=== PATIENT | female | born 1955 | race Caucasian/White ===

== ENCOUNTER 2018-03-13 11:04 | Outpatient (CLI) | payer OTHER ==
[2018-03-13 11:22] LABS: BASOPHILS # (AUTO) 0.1 10^3/uL (0.0-0.1); BASOPHILS % (AUTO) 0.8 %; EOSINOPHILS # (AUTO) 0.3 10^3/uL (0.0-0.7); HGB - HEMOGLOBIN 13.1 g/dL (12.0-16.0); LYMPHOCYTES # (AUTO) 1.7 10^3/uL (1.5-3.5); LYMPHOCYTES % (AUTO) 20.1 %; MEAN CORPUSCULAR HEMOGLOBIN 29.1 pg (27.0-31.0); MEAN CORPUSCULAR HGB CONC 34.4 g/dL (32.0-36.0); MEAN CORPUSCULAR VOLUME 84.7 fL (81.0-99.0); MEAN PLATELET VOLUME 7.5 fL (7.9-10.8); MONOCYTES # (AUTO) 0.6 10^3/uL (0.0-1.0); MONOCYTES % (AUTO) 7.5 %; NEUTROPHILS # (AUTO) 5.8 10^3/uL (1.5-6.6); NEUTROPHILS % (AUTO) 68.6 %; PLT - PLATELET COUNT 302 10^3/uL (130-450); RED BLOOD COUNT 4.49 10^6/uL (4.20-5.40); RED CELL DISTRIBUTION WIDTH 12.3 % (12.0-15.0); WHITE BLOOD COUNT 8.4 x10^3/uL (4.8-10.8)
[2018-03-13 11:37] LABS: HB2 TOTAL 14.1 g/dL; HEMOGLOBIN A1C 0.91 g/dL; HEMOGLOBIN A1C % 8.1 % (4.6-6.2)
[2018-03-13 11:45] LABS: ALBUMIN 3.9 g/dL (3.2-5.5); ALBUMIN/GLOBULIN RATIO 1.4 (1.0-2.2); ALKALINE PHOSPHATASE 77 IU/L (42-121); ALT ALANINE AMINOTRANSFERASE 20 IU/L (10-60); AST ASPARTATE AMINOTRANSFERASE 21 IU/L (10-42); BILIRUBIN,TOTAL 0.9 mg/dL (0.2-1.0); BUN - BLOOD UREA NITROGEN 11 mg/dL (6-20); CARBON DIOXIDE - CO2 29 mmol/L (21-32); CHLORIDE 102 mmol/L (101-111); CHOL/HDL RATIO 3.4 (<4.4); CHOLESTEROL 163 mg/dL; CREATININE 0.7 mg/dL (0.4-1.0); GFR - MDRD 84 (>89); GLUCOSE 193 mg/dL (70-100); HDL CHOLESTEROL 48 mg/dL; LDL CHOLESTEROL,CALCULATED 82 mg/dL; LDL/HDL RATIO 1.7 (<4.4); SODIUM 139 mmol/L (135-145); TOTAL PROTEIN 6.6 g/dL (6.7-8.2); VLDL CHOLESTEROL 33 mg/dL
[2018-03-13 12:25] LABS: THYROID STIMULATING HORMONE 2.71 uIU/mL (0.34-5.60)
[2018-03-13 12:27] LABS: FREE T4 (FREE THYROXINE) 0.73 ng/dL (0.58-1.64)
[2018-03-13 12:56] LABS: MICROALBUM/CREATININE RATIO,UR 4.5 ug/mg (<30.0); MICROALBUMIN,URINE 0.6 mg/dL (0-300.0)
== END 2018-03-13 11:05 | disposition home or self-care (01) ==
LOC: LAB 11:04
PROVIDERS: ATTEND Nurse Practitioner
DX: I10 Essential (primary) hypertension (principal); E11.9 Type 2 diabetes mellitus without complications; F90.9 Attention-deficit hyperactivity disorder, unspecified type
CPT/HCPCS: 36415; 80053; 80061; 82043; 82570; 83036; 83721; 84439; 84443; 85025

== ENCOUNTER 2022-11-12 10:38 | Outpatient (CLI) | payer MEDICARE, OTHER ==
[2022-11-12 18:43] LABS: BASOPHILS # (AUTO) 0.1 10^3/uL (0.0-0.1); BASOPHILS % (AUTO) 1.3 %; EOSINOPHILS # (AUTO) 0.3 10^3/uL (0.0-0.7); EOSINOPHILS % (AUTO) 3.2 %; HCT - HEMATOCRIT 38.4 % (37.0-47.0); HGB - HEMOGLOBIN 12.2 g/dL (12.0-16.0); LYMPHOCYTES # (AUTO) 1.9 10^3/uL (1.5-3.5); LYMPHOCYTES % (AUTO) 21.9 %; MEAN CORPUSCULAR HEMOGLOBIN 28.6 pg (27.0-31.0); MEAN CORPUSCULAR HGB CONC 31.8 g/dL (32.0-36.0); MEAN CORPUSCULAR VOLUME 89.9 fL (81.0-99.0); MONOCYTES # (AUTO) 0.7 10^3/uL (0.0-1.0); MONOCYTES % (AUTO) 8.2 %; NEUTROPHILS # (AUTO) 5.6 10^3/uL (1.5-6.6); NEUTROPHILS % (AUTO) 64.6 %; PLT - PLATELET COUNT 318 10^3/uL (130-450); RED BLOOD COUNT 4.27 10^6/uL (4.20-5.40); RED CELL DISTRIBUTION WIDTH 12.5 % (12.0-15.0); WHITE BLOOD COUNT 8.7 x10^3/uL (4.8-10.8)
[2022-11-12 18:51] LABS: % IRON SATURATION 12 % (20-50); ALBUMIN/GLOBULIN RATIO 1.7 (1.0-2.2); ALKALINE PHOSPHATASE 81 IU/L (42-121); ALT ALANINE AMINOTRANSFERASE 14 IU/L (10-60); AST ASPARTATE AMINOTRANSFERASE 15 IU/L (10-42); BILIRUBIN,TOTAL 0.7 mg/dL (0.2-1.0); BUN - BLOOD UREA NITROGEN 13 mg/dL (6-20); CALCIUM 9.3 mg/dL (8.5-10.3); CARBON DIOXIDE - CO2 30 mmol/L (21-32); CHLORIDE 105 mmol/L (101-111); CHOL/HDL RATIO 3.3 (<4.4); CHOLESTEROL 162 mg/dL; CREATININE 0.8 mg/dL (0.6-1.3); GFR - MDRD 71 (>89); GLUCOSE 254 mg/dL (74-104); HDL CHOLESTEROL 49 mg/dL; IRON 50 ug/dL (50-212); LDL CHOLESTEROL,CALCULATED 78 mg/dL; LDL/HDL RATIO 1.6 (<4.4); POTASSIUM 4.5 mmol/L (3.5-4.5); SODIUM 137 mmol/L (135-145); TOTAL IRON BINDING CAPACITY 403 ug/dL (250-450); TOTAL PROTEIN 6.3 g/dL (6.4-8.9); TRANSFERRIN 288 mg/dL (203-362); TRIGLYCERIDES 173 mg/dL (48-352); VLDL CHOLESTEROL 35 mg/dL
[2022-11-12 19:01] LABS: CREATININE,URINE 124.6 mg/dL; THYROID STIMULATING HORMONE 2.33 uIU/mL (0.34-5.60)
[2022-11-12 19:09] LABS: FERRITIN 16.6 ng/mL (11.0-306.8)
[2022-11-12 20:49] LABS: ESTIMATED AVERAGE GLUCOSE 194 mg/dL (70-100); HEMOGLOBIN A1c% 8.4 % (4.27-6.07)
[2022-11-14 05:12] LABS: VITAMIN D 25-HYDROXY 45.3 ng/mL (30.0-100.0)
== END 2022-11-12 10:39 | disposition home or self-care (01) ==
LOC: LAB.N 10:38
PROVIDERS: ATTEND Nurse Practitioner
DX: I10 Essential (primary) hypertension (principal); E78.2 Mixed hyperlipidemia; Z98.84 Bariatric surgery status; E11.9 Type 2 diabetes mellitus without complications; F41.9 Anxiety disorder, unspecified; F32.A Depression, unspecified
CPT/HCPCS: 36415; 80053; 80061; 82043; 82306; 82570; 82607; 82728; 82746; 83036; 83540; 83721; 83970; 84425; 84443; 84466; 84590; 85025

== ENCOUNTER 2023-01-04 12:46 | Outpatient (CLI) | payer MEDICARE ==
--- NOTE | 2023-01-04 13:25 | Sleep Patient Instructions ---
Sleep Center Visit Summary - Patient Visit Information Reason for Visit: Initial consult for evaluation of sleep disordered breathing and other sleep issues. - Patient Instructions Instructions Attached: Sleep Study Home Monitor, Sleep Study Additional Instructions: You will be completing a sleep study, either an in-lab polysomnography (PSG) or home sleep study (HST). You will follow-up in the sleep care office after the sleep study is completed to hear the results and talk about therapy, if needed. You will be called by our office staff to schedule this appointment, but you may contact us with any questions. - Clinic Information Contact: [facility] [address] [place] [id number] [email or web address] T: [phone]
--- NOTE | 2023-01-04 13:34 | SLEEP CARE CONSULTATION ---
Information from patient questionnaire entered by Justine Parham. I have reviewed and concur with the information entered by Justine Parham. This document represents the service I personally performed and the decisions made by me, Estela Espinosa ARNP. History of Present Illness Service Date and Time: 01/04/2023 1246 Reason for Visit: New patient Chief Complaint: reports: Unrefreshed sleep, Snoring, Excessive daytime sleepiness, Observed pauses in breathing, Fatigue Date of Onset: 5YRS Usual bedtime: 11PM-12AM Time it takes to fall asleep: 5-10MIN Snores at night: Yes Observed to quit breathing while asleep: Yes Sleeps alone due to snoring: Yes Number of times waking at night: 2 Reasons for waking at night: reports: Bathroom. denies: Choking, Snoring, Gasping for air Toss, Turn, or Twitch while sleeping: No Recalls having dreams: Yes Usually gets out of bed at: 8-930AM Feels refreshed in the morning: No Morning headache: No Sleepy or fatigued during the day: Yes Ever fallen asleep while driving: No (on long trips) Takes day naps: Yes (4 times a week; last about 30 mins-1.5 hours) Dreams during day naps: No Prior sleep studies: Yes Additional HPI information: I had the pleasure of seeing CONOR HOWARD today regarding the possibility of her having a sleep disorder. Her current complaints are excessive daytime sleepiness, fatigue, observed pauses in breathing, snoring and unrefreshed sleep. She tells me that her mother had sleep apnea. Sheri tried to do two sleep studies but the results were un-conclusive. She has tried an application on her phone that told her she should be checked for apnea. She is here to try to have a sleep study. She states she snores loudly and has had pauses in breathing according to her family. She states she never wakes up fee ling rested despite getting 8-9 hours of sleep nightly. - Parasomnia Symptoms Ever been unable to move upon waking from sleep: No Walks in sleep: Yes Talks in sleep: Yes Ever acted out dreams in sleep: No Ever felt weak in the knees when startled or emotional: No Bothered by creepy, crawly, restless sensations in legs: No Problems with memory or concentration: Yes Subjective Initial Center [place] Sleepiness Scale score: 7 (01/04/23) Past Medical History Past Medical History: reports: Hypertension, Diabetes, Insulin resistance, Anx iety, Depression, Attention deficit (ADHD) Social History The patient's occupation is a RE. Patient is and lives in [place]. Have you smoked in the past 12 months: No Alcohol use: Yes Alcohol amount and frequency: 2-3 DRINKS 2-3 YRS Caffeine use: Yes Caffeine amount and frequency: 2-3 Family History Family history of sleep disordered breathing: Yes Family Hx Sleep Apnea: Mother: Snoring, Sleep apnea - Treated Allergies and Home Medications Known drug allergies: Yes (CODEINE) Drug allergies reviewed: Yes Home medication list reviewed: Yes Allergy and home medication list: Home Medications Medication Instructions Recorded Confirmed Last Taken Type Cholecalciferol [Vitamin D3] See Rx Instructions .ROUTE .COMPLEX 01/04/23 01/04/23 Unknown History Insulin Glargine [Lantus Solostar] See Rx Instructions .ROUTE .COMPLEX 01/04/23 01/04/23 Unknown History Losartan Potassium See Rx Instructions .ROUTE .COMPLEX 01/04/23 01/04/23 Unknown History Multivit-Min/Iron/Folic/Lutein See Rx Instructions .ROUTE .COMPLEX 01/04/23 01/04/23 Unknown History [Multivitamin Women 50 Plus Tab] Semaglutide [Ozempic] See Rx Instructions .ROUTE .COMPLEX 01/04/23 01/04/23 Unknown History Simvastatin [Zocor] See Rx Instructions .ROUTE .COMPLEX 01/04/23 01/04/23 Unknown History buPROPion [Wellbutrin Sr] See Rx Instructions .ROUTE .COMPLEX 01/04/23 01/04/23 Unknown History metFORMIN [Glucophage] See Rx Instructions .ROUTE .COMPLEX 01/04/23 01/04/23 Unknown History Review of Systems Weight gain over past 5 years: 15 Weight loss over past 5 years: 10 Cardiovascular: reports: high blood pressure, leg or foot swelling Gastrointestinal: reports: other (CONTIPATION). denies: heartburn Neurological: denies: headaches Psychiatric: reports: anxiety, depression, other (ADHD) Ear/Nose/Throat: reports: tonsillectomy, wisdom teeth removed (3) Endocrine: reports: sluggishness Musculoskeletal: reports: joint pain, neck pain, back pain, mobility problems, other (HIP STRESS FX 2YRS AGO STILL BOTHERS ME) Physical Exam Vital signs obtained and entered by: JUSTINE Terrazas MA Blood Pressure: 138/88 (LEFT ARM) Cuff size: regular Heart Rate: 90 O2 Saturation: 96 Height: 5 ft 5 in Weight: 248 lb 6.4 oz Body Mass Index: 41.3 BMI Classification: Morbidly Obese Neck circumference: 17 Mouth and throat: narrow oropharynx Soft palate: long Hard palate: normal Uvula: normal Uvula visualization: 50% Mallampati Class II Tongue: enlarged in size with teeth henry on lateral edges Tonsils: absent bilaterally Neck: normal w/o lymphadenopathy or thyromegaly Heart: regular rate and rhythm Lungs: clear bilaterally Impression and Plan 1. Suspected Obstructive Sleep Apnea-Hypopnea Syndrome, as suggested by a history of loud and irregular snoring, observed cessation of breath while asleep, unrefreshed sleep, cognitive impairment, and excessive daytime sleepiness. Narrow oropharynx and obesity are common predisposing factors for obstructive sleep apnea-hypopnea syndrome. I recommend proceeding to polysomnography to confirm the diagnosis and to assess severity. If the patient has significant sleep disordered breathing, a manual CPAP titration study will also be performed to find the optimal treatment pressure. I informed the patient of what the sleep studies involve and after some discussion, obtained agreement to proceed. The pathophysiology of obstructive sleep apnea-hypopnea syndrome was discussed with the patient and health risks of cardiovascular and cerebrovascular disease if not treated. Risks of drowsy driving discussed in detail and patient advised to avoid long distance driving and to puller through at the first sign of drowsiness. Patient agreed to plan. * Schedule polysomnography. * Avoid long distance driving or driving when feeling sleepy. * Avoid alcohol, sedative and muscle relaxant around bedtime. * Attempt to lose weight. * Review instructions provided by trained office staff on how to prepare for the sleep study. * Return for follow-up after sleep study completed. Counseling Topics: Weight loss health impact Plan: PSG/HST Visit Type: In Office Time Spent with Patient (minutes): 33 Provider Statement: I spent 100% of the Face to Face Visit with the patient with greater than 50% spent counseling the patient and coordination of care.
[2023-01-04 13:50] VITALS: BP 138/88; O2SAT 96
== END 2023-01-04 12:47 | disposition home or self-care (01) ==
LOC: SC 12:46
PROVIDERS: ATTEND Nurse Practitioner Family
DX: G47.10 Hypersomnia, unspecified (principal); R53.83 Other fatigue; R06.83 Snoring; G47.8 Other sleep disorders; R06.81 Apnea, not elsewhere classified; I10 Essential (primary) hypertension; E11.9 Type 2 diabetes mellitus without complications; F32.A Depression, unspecified; E66.01 Morbid (severe) obesity due to excess calories; Z68.41 Body mass index [BMI] 40.0-44.9, adult
CPT/HCPCS: 99203; G0463; 99212

== ENCOUNTER 2023-01-21 12:26 | Outpatient (CLI) | payer MEDICARE | END 2023-01-21 12:27 | disposition home or self-care (01) | LOC: SC 12:26 | PROVIDERS: ATTEND Nurse Practitioner Family | DX: G47.33 Obstructive sleep apnea (adult) (pediatric) (principal); R09.02 Hypoxemia; E66.01 Morbid (severe) obesity due to excess calories; Z68.41 Body mass index [BMI] 40.0-44.9, adult | CPT/HCPCS: G0399 ×2; 95806 ==

== ENCOUNTER 2023-01-29 12:33 | Outpatient (CLI) | payer MEDICARE ==
--- NOTE | 2023-01-29 13:15 | Sleep Patient Instructions ---
Sleep Center Visit Summary - Patient Visit Information Reason for Visit: Sleep Study Followup - Patient Instructions Additional Instructions: You are to start Positional therapy to control your sleep apnea. You may obtain positional belts or other commercial devices online. You may also use pillows to position yourself on your side or a T shirt with balls sewn into the back to help keep you on your side to sleep. We would like to follow up with you in a month or two to check effectiveness of therapy. Please call office to schedule a follow up appointment in the sleep care office 1-2 months to check response to therapy. - Clinic Information Contact: [facility] [address] [place] [id number] [email or web address] T: [phone]
--- NOTE | 2023-01-29 13:21 | SLEEP CARE CONSULTATION ---
Information from patient questionnaire entered by Justine Parham. I have reviewed and concur with the information entered by Justine Parham. This document represents the service I personally performed and the decisions made by , Estela Espinosa ARNP. History of Present Illness Service Date and Time: 01/29/2023 1233 Initial [place] Sleepiness Scale score: 7 (01/04/23) Current [place] Sleepiness Scale score: 9 (01/29/23) Additional HPI information: CONOR HOWARD returns for follow up and results of the recently performed home sleep study. I explained the pathophysiology behind obstructive sleep apnea. We then spent quite a bit of time discussing different treatment options. For mild obstructive sleep apnea, surgery and oral appliance are alternatives to nasal CPAP therapy but in moderate or severe cases, nasal CPAP is the most effective and reliable treatment. Because apnea is primarily in supine position, then positional management therapy could be effective. Methods discussed such as positioning with pillows, using a T-shirt with tennis balls in the back or commercial products that have a pillow format on back to prevent supine sleep. I reviewed the impact of weight changes on sleep apnea and strongly recommended losing weight. Patient does not drink alcohol. Patient was cautioned about risks of drowsy driving until sleepiness symptoms resolve. Patient denies drowsy driving. Sleep Study - Results Type of Sleep Study: Home sleep study (COMPLETED 01/22/23) Prior sleep studies: Yes Polysomnography/Home Sleep Study results: Physician Impression: The quality of the study is good. The length of the study is adequate (> 240 minutes). Please also see the tabulated and graphic data. 1. Obstructive Sleep Apnea-Hypopnea (ICD-10 G47.33), mild, with an AHI of 5.5/hr and alirio SaO2 of 86%. During the study, the patient had 23 apneas (23 obstructive, 0 central, 0 mixed) and 14 hypopneas. The longest episode lasted 62.0 seconds. The respiratory events occurred almost exclusively during supine sleep (supine AHI was 12.8 and non-supine, 1.80). 2. Hypoxemia (ICD-10 R09.02), minimal, with the lowest oxygen saturation of 86 % and 0.7 minutes with SaO2 under 90%. Baseline oxygen saturation was normal (Average oxygen saturation was 95%). Allergies and Home Medications Known drug allergies: Yes (codiene) Drug allergies reviewed: Yes Home medication list reviewed: Yes (no changes) Allergy and home medication list: Allergies codeine Allergy (Verified 01/29/23 12:43) Review of Systems Review of systems same as previous: Yes (NO CHANGE) Physical Exam Vital signs obtained and entered by: JUSTINE Terrazas MA Blood Pressure: 132/82 (LEFT ARM) Cuff size: regular Heart Rate: 84 O2 Saturation: 98 Height: 5 ft 5 in Weight: 247 lb 12.8 oz Body Mass Index: 41.2 BMI Classification: Morbidly Obese Impression and Plan 1. Obstructive Sleep Apnea-Hypopnea Syndrome, mild, with lowest oxygen saturation of 86%. Obviously this is the cause of the patients symptoms of unrefreshed sleep, and excessive daytime sleepiness. Positive pressure therapy could benefit hjypertension, anxiety, depression, insulin resistance and diabetes. Since patients apnea is primarily in supine position, patient advised to try positional therapy and agreed with plan. He is also advised to lose weight as this will reduce snoring and apnea. An oral appliance can also be used for snoring but often is not covered by insurance. Follow up is scheduled for one month to check effectiveness and if further evaluation indicated such a repeat study in supine position only to see if additional treatment indicated. 2. Obesity, unspecified. Currently patients BMI is 41.2. Obesity increases the risk of apnea, CPAP pressure requirements and overall health risks especially cardiovascular and diabetes. Thus patient is advised to lose weight. * Positional therapy * Attempt to lose weight. * Avoid supine sleep. * The patient is again cautioned about driving until sleepiness completely resolves. * Return in 1-2 months. I will assess response to therapy at that time. Counseling Topics: Sleeping position, Weight loss health impact Follow up with Sleep Care in: 1-2 months Plan: Positional therapy with 1-2 month followup Visit Type: In Office Time Spent with Patient (minutes): 23 Provider Statement: I spent 100% of the Face to Face Visit with the patient with greater than 50% spent counseling the patient and coordination of care.
[2023-01-29 13:49] VITALS: BP 132/82; O2SAT 98
== END 2023-01-29 12:34 | disposition home or self-care (01) ==
LOC: SC 12:33
PROVIDERS: ATTEND Nurse Practitioner Family
DX: G47.33 Obstructive sleep apnea (adult) (pediatric) (principal); E66.01 Morbid (severe) obesity due to excess calories; Z68.41 Body mass index [BMI] 40.0-44.9, adult
CPT/HCPCS: 99213; G0463; 99212

== ENCOUNTER 2023-02-15 09:06 | Outpatient (CLI) | payer MEDICARE ==
[2023-02-15 12:59] LABS: CREATININE,URINE 102.9 mg/dL; MICROALBUM/CREATININE RATIO,UR 6.8 ug/mg (<30.0); MICROALBUMIN,URINE 0.7 mg/dL
[2023-02-15 13:17] LABS: ESTIMATED AVERAGE GLUCOSE 209 mg/dL (70-100); HEMOGLOBIN A1c% 8.9 % (4.27-6.07)
== END 2023-02-15 09:07 | disposition home or self-care (01) ==
LOC: LAB.N 09:06
PROVIDERS: ATTEND Nurse Practitioner
DX: E11.9 Type 2 diabetes mellitus without complications (principal)
CPT/HCPCS: 36415; 82043; 82570; 83036

== ENCOUNTER 2023-03-27 12:44 | Outpatient (CLI) | payer MEDICARE ==
--- NOTE | 2023-03-27 13:10 | Sleep Patient Instructions ---
Sleep Center Visit Summary - Patient Visit Information Reason for Visit: 2-month follow-up for positional therapy - Patient Instructions Additional Instructions: You were here for follow up of Positional therapy. You will be continued on Positional therapy. You should follow up with sleep care in 3 months. You may contact us sooner for any questions or concerns. - Clinic Information Contact: [facility] [address] [place] [address] [email or web address] T: [phone]
[2023-03-27 13:19] VITALS: BP 146/74; O2SAT 97
--- NOTE | 2023-03-27 13:19 | SLEEP CARE CONSULTATION ---
Information from patient questionnaire entered by Franklin Parham. I have reviewed and concur with the information entered by Franklin Parham. This document represents the service I personally performed and the decisions made by me, Estela Espinosa ARNP. History of Present Illness Service Date and Time: 03/27/2023 1244 Previous diagnosis: Mild, Obstructive Sleep Apnea-Hypopnea Syndrome AHI: 5.5 (01/2023) Reason for follow up: other (2 MONTH F/U POSITIONAL) Prior sleep studies: Yes Type of Sleep Study: Home sleep study HPI additional information: CONOR HOWARD was diagnosed to have mild, AHI 5.5, obstructive sleep apnea-hypopnea syndrome and returned today for Positional therapy two month follow-up. Sleep Study - Results Type of Sleep Study: Home sleep study Prior sleep studies: Yes CPAP Compliance Data Compliance data discussion: She is using a pillows behind her back to keep her off her back with some success. Subjective On therapy, patient: reports: being more awake and alert during the day, more rested overall, drowsiness while driving (with long trips in afternoon) Initial [place] Sleepiness Scale score: 7 (01/04/23) Current [place] Sleepiness Scale score: 8 (03/27/23) Allergies and Home Medications Known drug allergies: Yes (codeine) Drug allergies reviewed: Yes Home medication list reviewed: Yes (no changes) Allergy and home medication list: Allergies codeine Allergy (Verified 03/25/23 08:59) Review of Systems Review of systems same as previous: Yes (NO CHANGE) Physical Exam Vital signs obtained and entered by: FRANKLIN Terrazas MA Blood Pressure: 146/74 (RIGHT ARM) Cuff size: regular Heart Rate: 83 O2 Saturation: 97 Height: 5 ft 5 in Weight: 248 lb Body Mass Index: 41.2 BMI Classification: Morbidly Obese Impression and Plan 1. Obstructive Sleep Apnea-Hypopnea Syndrome, mild. On Positional therapy, the patient has noticed more energy during the day and is more rested overall. She has been using a neck type cervical pillow behind her back to keep her on her side and she feels it is working. She has noticed an improvement although is not greatly significant at this point. She would like to continue with the positional therapy for a few more months to see if things continue to improve. I will have her come back in about 3 months to see how she is doing. She voiced agreement with plan of care. Patient's apnea severity and rationale for treatment to reduce apnea, improve sleep quality and reduce cardiovascular and cerebrovascular events was reviewed. I also reviewed the benefit of consistent device use of CPAP for hypertension, diabetes, insulin resistance, depression and anxiety. 2. Obesity, unspecified. Currently patients BMI is 41.2. She is trying to decrease sugar and carbs from the diet. She is increasing fresh foods. Obesity increases the risk of apnea and overall health risks especially cardiovascular and diabetes. Thus patient is advised to continue to try to lose weight. 3. Elevated blood pressure reading in patient with hypertension. Her initial blood pressure was 194/91. After sitting in exam room, it reduced to 147/74 upon re-evaluation. She is keeping track of her blood pressure for her PCP. I advised her to followup with them if she continues to have elevated blood pressure readings. She denied chest pain, shortness of breath, dizziness or headaches today. * Continue Positional therapy * Followup with PCP for elevated blood pressure * Notify me if snoring with mask or feeling that the pressure is too much or too little * Attempt to lose weight * Call this office if any problems * Return for follow up in 3 months, or sooner if concerns arise Counseling Topics: Sleeping position, Weight loss health impact Follow up with Sleep Care in: 3 months (Positional therapy) Visit Type: In Office Time Spent with Patient (minutes): 20 Provider Statement: I spent 100% of the Face to Face Visit with the patient with greater than 50% spent counseling the patient and coordination of care.
== END 2023-03-27 12:45 | disposition home or self-care (01) ==
LOC: SC 12:44
PROVIDERS: ATTEND Nurse Practitioner Family
DX: G47.33 Obstructive sleep apnea (adult) (pediatric) (principal); E66.01 Morbid (severe) obesity due to excess calories; Z68.41 Body mass index [BMI] 40.0-44.9, adult; I10 Essential (primary) hypertension
CPT/HCPCS: 99213; G0463; 99212

== ENCOUNTER 2023-07-15 12:26 | Outpatient (CLI) | payer MEDICARE ==
[2023-07-15 17:45] LABS: BASOPHILS # (AUTO) 0.1 10^3/uL (0.0-0.1); EOSINOPHILS # (AUTO) 0.2 10^3/uL (0.0-0.7); EOSINOPHILS % (AUTO) 2.2 %; HCT - HEMATOCRIT 39.1 % (37.0-47.0); HGB - HEMOGLOBIN 12.5 g/dL (12.0-16.0); LYMPHOCYTES # (AUTO) 1.7 10^3/uL (1.5-3.5); LYMPHOCYTES % (AUTO) 19.1 %; MEAN CORPUSCULAR HEMOGLOBIN 28.8 pg (27.0-31.0); MEAN CORPUSCULAR VOLUME 90.1 fL (81.0-99.0); MONOCYTES # (AUTO) 0.6 10^3/uL (0.0-1.0); MONOCYTES % (AUTO) 6.5 %; NEUTROPHILS # (AUTO) 6.4 10^3/uL (1.5-6.6); NEUTROPHILS % (AUTO) 70.5 %; PLT - PLATELET COUNT 314 10^3/uL (130-450); RED BLOOD COUNT 4.34 10^6/uL (4.20-5.40); RED CELL DISTRIBUTION WIDTH 12.8 % (12.0-15.0); WHITE BLOOD COUNT 9.1 x10^3/uL (4.8-10.8)
[2023-07-15 18:06] LABS: ALBUMIN 4.1 g/dL (3.2-5.5); ALBUMIN/GLOBULIN RATIO 2.1 (1.0-2.2); ALKALINE PHOSPHATASE 88 IU/L (42-121); ALT ALANINE AMINOTRANSFERASE 14 IU/L (10-60); AST ASPARTATE AMINOTRANSFERASE 16 IU/L (10-42); BILIRUBIN,TOTAL 1.2 mg/dL (0.2-1.0); BUN - BLOOD UREA NITROGEN 12 mg/dL (6-20); CALCIUM 9.9 mg/dL (8.5-10.3); CARBON DIOXIDE - CO2 29 mmol/L (21-32); CHLORIDE 103 mmol/L (101-111); CHOL/HDL RATIO 4.2 (<4.4); CHOLESTEROL 191 mg/dL; CREATININE 0.9 mg/dL (0.6-1.3); GFR - MDRD 62 (>89); GLUCOSE 211 mg/dL (74-104); HDL CHOLESTEROL 45 mg/dL; LDL CHOLESTEROL,CALCULATED 81 mg/dL; LDL/HDL RATIO 1.8 (<4.4); POTASSIUM 4.8 mmol/L (3.5-4.5); SODIUM 140 mmol/L (135-145); TOTAL PROTEIN 6.1 g/dL (6.4-8.9); TRIGLYCERIDES 327 mg/dL (48-352); VLDL CHOLESTEROL 65 mg/dL
[2023-07-15 18:11] LABS: CREATININE,URINE 119.5 mg/dL; MICROALBUM/CREATININE RATIO,UR 10.9 ug/mg (<30.0); MICROALBUMIN,URINE 1.3 mg/dL
[2023-07-15 18:17] LABS: THYROID STIMULATING HORMONE 1.87 uIU/mL (0.34-5.60)
[2023-07-15 21:39] LABS: ESTIMATED AVERAGE GLUCOSE 217 mg/dL (70-100); HEMOGLOBIN A1c% 9.2 % (4.27-6.07)
== END 2023-07-15 12:27 | disposition home or self-care (01) ==
LOC: LAB.N 12:26
PROVIDERS: ATTEND Nurse Practitioner
DX: I10 Essential (primary) hypertension (principal); E78.2 Mixed hyperlipidemia; E11.9 Type 2 diabetes mellitus without complications; F41.9 Anxiety disorder, unspecified; F32.A Depression, unspecified
CPT/HCPCS: 36415; 80053; 80061; 82043; 82570; 83036; 83721; 84443; 85025

== ENCOUNTER 2023-07-18 09:22 | Outpatient (CLI) | payer MEDICARE ==
--- NOTE | 2023-07-18 09:55 | Sleep Patient Instructions ---
Sleep Center Visit Summary - Patient Visit Information Reason for Visit: 3-month follow-up for positional therapy - Patient Instructions Additional Instructions: You were here for follow up of Positional therapy. You will be continued on positional therapy. You should follow up with sleep care in 12 months. You may contact us sooner for any questions or concerns. - Clinic Information Contact: [facility] [address] [place] [address] [email or web address] T: [phone]
[2023-07-18 09:58] VITALS: BP 173/85; O2SAT 97
--- NOTE | 2023-07-18 09:58 | SLEEP CARE CONSULTATION ---
Information from patient questionnaire entered by Franklin Parham. I have reviewed and concur with the information entered by Franklin Parham. This document represents the service I personally performed and the decisions made by , Estela Espinosa ARNP. History of Present Illness Service Date and Time: 07/18/2023921 Previous diagnosis: Mild, Obstructive Sleep Apnea-Hypopnea Syndrome AHI: 5.5 (01/2023) Reason for follow up: three month (F/U POSITIONAL THERAPY) Prior sleep studies: Yes Type of Sleep Study: Home sleep study HPI additional information: CONOR HOWARD was diagnosed to have mild, AHI 5.5, obstructive sleep apnea-hypopnea syndrome and returned today for Positional therapy three month follow-up. Sleep Study - Results Type of Sleep Study: Home sleep study Prior sleep studies: Yes CPAP Compliance Data Compliance data discussion: She has been using a heavy pillow that keeps her off her back. Subjective On therapy, patient: reports: sleeping better, awakening more refreshed, being more awake and alert during the day, more rested overall, other (less naps in last few week). denies: drowsiness while driving Initial [place] Sleepiness Scale score: 7 (01/04/23) Current [place] Sleepiness Scale score: 3 (07/18/23) Allergies and Home Medications Known drug allergies: Yes (as listed) Drug allergies reviewed: Yes Home medication list reviewed: Yes (HCTZ) Allergy and home medication list: Allergies codeine Allergy (Verified 07/16/23 09:18) Review of Systems Review of systems same as previous: Yes (no changes) Physical Exam Vital signs obtained and entered by: FRANKLIN Terrazas MA Blood Pressure: 173/85 (RIGHT ARM) Cuff size: long Heart Rate: 89 O2 Saturation: 97 Height: 5 ft 5 in Weight: 244 lb 12.8 oz Weight change since last visit: 4 lb loss Body Mass Index: 40.7 BMI Classification: Morbidly Obese Impression and Plan 1. Obstructive Sleep Apnea-Hypopnea Syndrome, mild. Using positional therapy, the patient has better sleep quality and is more rested overall. She is not napping in afternoon in last few weeks. Patient's apnea severity and rationale for treatment to reduce apnea, improve sleep quality and reduce cardiovascular and cerebrovascular events was reviewed. I also reviewed the benefit of consistent apnea control for hypertension, diabetes, depression, anxiety and insulin resistance. 2. Obesity, unspecified. Currently patients BMI is 40.7. Obesity increases the risk of apnea, CPAP pressure requirements and overall health risks especially cardiovascular and diabetes. Thus patient is advised to continue to try to lose weight. -Continue positional therapy -Attempt to lose weight -Call this office if any problems -Return for follow up in 1 year, or sooner if concerns arise Counseling Topics: Sleeping position, Weight loss health impact Follow up with Sleep Care in: 1 year (for postional therapy followup) Visit Type: In Office Time Spent with Patient (minutes): 14 Provider Statement: I spent 100% of the Face to Face Visit with the patient with greater than 50% spent counseling the patient and coordination of care.
== END 2023-07-18 09:23 | disposition home or self-care (01) ==
LOC: SC 09:22
PROVIDERS: ATTEND Nurse Practitioner Family
DX: G47.33 Obstructive sleep apnea (adult) (pediatric) (principal); E66.01 Morbid (severe) obesity due to excess calories; Z68.41 Body mass index [BMI] 40.0-44.9, adult
CPT/HCPCS: 99212; G0463

== ENCOUNTER 2023-12-02 12:16 | Outpatient (CLI) | payer MEDICARE ==
[2023-12-02 20:45] LABS: ESTIMATED AVERAGE GLUCOSE 166 mg/dL (70-100); HEMOGLOBIN A1c% 7.4 % (4.27-6.07)
== END 2023-12-02 12:17 | disposition home or self-care (01) ==
LOC: LAB.N 12:16
PROVIDERS: ATTEND Nurse Practitioner
DX: E11.9 Type 2 diabetes mellitus without complications (principal)
CPT/HCPCS: 36415; 83036